=== PATIENT | female | born 1955 | race Caucasian/White ===

== ENCOUNTER 2025-01-10 12:49 | Outpatient (CLI) | payer BC ==
[2024-12-13 10:13] LABS: CREATININE 0.86 MG/DL (0.40-0.90); TOTAL CARBON DIOXIDE 27.9 MMOL/L (24-32); eGFR 65 ML/MIN
[~2025-01-10 12:49] MED LIST: ASPI-1071 PO; ATOR20TA66 PO; CLOP75TA34 PO; LISI5TAB22 PO
--- NOTE | 2025-01-10 14:57 | RADIOLOGY REPORT ---
EXAM: MR MRI HEAD HISTORY: HX OF CVA, WHITE MATTER DISEASE COMPARISON: MR MRI HEAD on DOS: 06/26/24 TECHNIQUE: Multiplanar multisequence pre and post IV contrast MR images of the brain were performed. 15 mL Clariscan gadolinium contrast were used. FINDINGS: There is mild global brain atrophy. There is [id number] high T2-FLAIR signal abnormal ity in the periventricular white matter. No intracranial mass, midline shift, hydrocephalus, or abnor mal postcontrast enhancement. The diffusion-weighted images do not demonstrate restricted diffusion. Flow voids are present in the major intracranial vessels. The corpus callosum, sella, pituitary, and craniocervical junction are unremarkable. There are postoperative changes of bilateral cataract extra ction surgery. There is mild mucosal thickening of the ethmoid and frontal sinuses. The bilateral mas toid air cells are clear. IMPRESSION: 1. Global brain atrophy and chronic ischemic changes without evidence of acute infarct or other acute intracranial process. 2. Mild bilateral ethmoid and frontal sinus disease. 3. Only a few of the axial T1 post-contrast images are available for viewing. No sagittal or coronal T1 post-contrast images are visible. If these images become available, an addendum will be generated. Otherwise, consider repeat imaging to include 3 plane T1 post IV contrast images.
[2025-01-11] MEDS ORDERED: GADOTERATE MEGLUMINE 7.5 MMOL/15 ML VIAL IV ONE (16:45)
== END 2025-01-10 23:59 | disposition home or self-care (01) ==
LOC: MRI 12:49
PROVIDERS: ATTEND Nurse Practitioner Family
DX: I67.82 Cerebral ischemia (principal); J32.1 Chronic frontal sinusitis; R90.82 White matter disease, unspecified; Z86.73 Personal history of transient ischemic attack (TIA), and cerebral infarction without residual deficits; J32.2 Chronic ethmoidal sinusitis
CPT/HCPCS: 36415; 70553; 80048; A9575